=== PATIENT | female | born 1940 | race Caucasian/White ===

== ENCOUNTER 2016-10-28 22:19 | Emergency (ER) | payer MEDICARE, OTHER ==
[~2016-10-28] VITALS: Ht 162.6 cm; Wt 88.0 kg
[~2016-10-28 22:19] MED LIST: ALBU0.63 NEB; ALBU8.5H5 INH; ASPI-496 PO; CEFU500T PO; FLUT12AE INH; HYDR-3240 PO; LEVO500T33 PO; LEVO75TA PO; LORA10TA75 PO; MOME17SP NAS; MONT10TA6 PO; PRED20TA PO; PROP225C3 PO; VERA180C2 PO; VERA180T56 PO; [UNRECOGNIZED DRUG - REMARK]
[2016-10-28 23:01] LABS: ASPARTATE AMINO TRANSFERASE 13 U/L (15-37); BLOOD UREA NITROGEN 15 mg/dL (7-18)
[2016-10-28 23:12] LABS: IS PT STATUS REG ER OR PRE ER? YES
[2016-10-29 00:02] VITALS: BP 149/54
== END 2016-10-29 00:03 | disposition home or self-care (01) ==
LOC: ED 23:11
DX: J44.9 Chronic obstructive pulmonary disease, unspecified (principal); I10 Essential (primary) hypertension; K21.9 Gastro-esophageal reflux disease without esophagitis; E78.00 Pure hypercholesterolemia, unspecified; Z85.038 Personal history of other malignant neoplasm of large intestine; Z88.1 Allergy status to other antibiotic agents; Z88.8 Allergy status to other drugs, medicaments and biological substances
CPT/HCPCS: 36415; 71010; 80053; 83735; 83880; 84484; 85025; 93005; 99285

== ENCOUNTER 2016-11-04 11:51 | Emergency (ER) | payer MEDICARE, OTHER ==
[~2016-11-04] VITALS: Ht 162.6 cm; Wt 87.7 kg
[2016-11-04] MEDS ORDERED: SODIUM CHLORIDE FLUSH 10ML SYR IVF ONE (12:30)
[2016-11-04 12:37] LABS: HEMATOCRIT 41.8 % (34.6-47.8); HEMOGLOBIN 13.6 g/dL (11.7-16.4); WHITE BLOOD COUNT 10.8 x10^3/uL (3.4-10)
[2016-11-04 12:49] LABS: BLOOD UREA NITROGEN 13 mg/dL (7-18)
[2016-11-04 12:57] LABS: IS PT STATUS REG ER OR PRE ER? YES
[2016-11-04 14:05] VITALS: BP 138/76
== END 2016-11-04 14:25 | disposition home or self-care (01) ==
LOC: ED 12:23
DX: I10 Essential (primary) hypertension (principal); J32.0 Chronic maxillary sinusitis; E78.00 Pure hypercholesterolemia, unspecified; I48.91 Unspecified atrial fibrillation; J44.9 Chronic obstructive pulmonary disease, unspecified; Z85.038 Personal history of other malignant neoplasm of large intestine
CPT/HCPCS: 36415; 71010; 80048; 82040; 83880; 84484; 85025; 93005; 99285

== ENCOUNTER 2017-02-13 09:04 | Inpatient (IN) | payer MEDICARE, OTHER ==
[~2017-02-13] VITALS: Ht 162.6 cm; Wt 91.3 kg
[~2017-02-13 09:04] MED LIST changes: -LEVO500T33 PO; +LEVO500T47 PO
[2017-02-13] MEDS ORDERED: LORazepam 2 MG/ML, 1ML IVPush STA (09:33)
[2017-02-13] MEDS ORDERED: DILTIAZEM 5 MG/ML, 5ML IV ONE (10:00)
[2017-02-13] MEDS ORDERED: SODIUM CHLORIDE FLUSH 10ML SYR IVF ONE (10:00)
[2017-02-13] MEDS ORDERED: SODIUM CHLORIDE 0.9% 1,000ML IVBOLUS ONE (10:00)
[2017-02-13] MEDS ORDERED: ASPIRIN 81 MG TABLET CHEW ONE (10:00)
[2017-02-13] MEDS ORDERED: ASPIRIN 81 MG TABLET CHEW PO ONE (10:00)
[2017-02-13] MEDS ORDERED: LORazepam 2 MG/ML, 1ML ONE (10:01)
[2017-02-13] MEDS ORDERED: DILTIAZEM 5 MG/ML, 5ML ONE (10:02)
[2017-02-13 10:04] LABS: HEMATOCRIT 41.9 % (34.6-47.8); HEMOGLOBIN 13.7 g/dL (11.7-16.4); WHITE BLOOD COUNT 15.5 x10^3/uL (3.4-10)
[2017-02-13 10:18] LABS: BLOOD UREA NITROGEN 16 mg/dL (7-18)
[2017-02-13 10:22] LABS: IS PT STATUS REG ER OR PRE ER? YES
[2017-02-13] MEDS ORDERED: ENOXAPARIN 100 MG/ML SQ ONE (11:00)
[2017-02-13] MEDS ORDERED: ENALAPRILAT 1.25 MG/ML, 2ML IVPush PRN (12:30)
[2017-02-13] MEDS ORDERED: ONDANSETRON ODT 4 MG PO PRN (12:30)
[2017-02-13] MEDS ORDERED: LABETALOL 5MG/ML, 20ML IVPush PRN (12:30)
[2017-02-13] MEDS ORDERED: ALBUTEROL/IPRATROPIUM 2.5MG/0.5MG, 3 ML NPPB PRN (12:30)
[2017-02-13 14:40] VITALS: BP 106/67
[2017-02-13 15:32] LABS: IS PT STATUS REG ER OR PRE ER? NO
[2017-02-13 18:00] VITALS: BP 120/72
[2017-02-13] MEDS: VERAPAMIL ER 180MG TABLET.ER PO SCH (18:16)
[2017-02-13] MEDS: ALBUTEROL/IPRATROPIUM 2.5MG/0.5MG, 3 ML NPPB SCH (18:59)
[2017-02-13 19:46] VITALS: BP 130/64
[2017-02-13] MEDS ORDERED: LEVOTHYROXINE 50 MCG TABLET ONE ×2 (20:14→20:15)
[2017-02-13] MEDS: SODIUM CHLORIDE 0.9% 1,000 ML IV SCH (20:19)
[2017-02-13 21:14] LABS: IS PT STATUS REG ER OR PRE ER? NO
[2017-02-13] MEDS: PROPAFENONE 150 MG TABLET PO SCH (21:48)
[2017-02-14 03:42] VITALS: BP 137/63
[2017-02-14] MEDS: LEVOTHYROXINE 50 MCG TABLET PO SCH ×2 (04:35→08:16)
[2017-02-14] MEDS: SODIUM CHLORIDE 0.9% 1,000 ML IV SCH (04:36)
[2017-02-14 05:19] LABS: HEMATOCRIT 35.5 % (34.6-47.8); HEMOGLOBIN 11.9 g/dL (11.7-16.4); WHITE BLOOD COUNT 14.9 x10^3/uL (3.4-10)
[2017-02-14 05:36] LABS: BLOOD UREA NITROGEN 15 mg/dL (7-18)
[2017-02-14] MEDS: ALBUTEROL/IPRATROPIUM 2.5MG/0.5MG, 3 ML NPPB SCH ×2 (06:40→10:51)
[2017-02-14 07:55] VITALS: BP 131/96
[2017-02-14] MEDS: PROPAFENONE 150 MG TABLET PO SCH (08:12)
[2017-02-14] MEDS: VERAPAMIL ER 180MG TABLET.ER PO SCH (08:12)
[2017-02-14] MEDS ORDERED: ASPIRIN 81 MG TABLET EC PO SCH (09:00)
[2017-02-14] MEDS ORDERED: ENOXAPARIN 40 MG/0.4 ML SQ SCH (09:00)
[2017-02-14] MEDS ORDERED: FLUTICASONE FUROATE 100MCG/INH INH SCH (09:00)
== END 2017-02-14 12:16 | disposition home or self-care (01) | DRG 309 ==
LOC: ED 09:59 → EDIP 10:50 → 5SO 14:05 → DCLOUNGE 02-14 12:03
PROVIDERS: ADMIT Family Medicine; ATTEND Family Medicine
DX: I48.0 Paroxysmal atrial fibrillation (principal); J44.1 Chronic obstructive pulmonary disease with (acute) exacerbation; I35.0 Nonrheumatic aortic (valve) stenosis; E03.9 Hypothyroidism, unspecified; I25.10 Atherosclerotic heart disease of native coronary artery without angina pectoris; F41.9 Anxiety disorder, unspecified; Z88.8 Allergy status to other drugs, medicaments and biological substances; I10 Essential (primary) hypertension; Z79.82 Long term (current) use of aspirin; Z85.038 Personal history of other malignant neoplasm of large intestine; Z86.010 Personal history of colon polyps; Z96.649 Presence of unspecified artificial hip joint
CPT/HCPCS: 36415; 71010; 80048; 82040; 84443; 84484; 85025; 85610; 85730; 93005; 94640; 96361; 96374; J1650; J7620; J2060; J7030

== ENCOUNTER 2017-02-16 15:36 | Emergency (ER) | payer MEDICARE, OTHER ==
[~2017-02-16] VITALS: Ht 162.6 cm; Wt 87.4 kg
[2017-02-16 16:57] LABS: PATH.CAST-FLAG NOT PRESENT; SPERM-FLAG NOT PRESENT; SRC-FLAG NOT PRESENT; XTAL-FLAG NOT PRESENT; YLC-FLAG NOT PRESENT
[2017-02-16] MEDS ORDERED: SODIUM CHLORIDE FLUSH 10ML SYR IVF ONE (17:00)
[2017-02-16] MEDS ORDERED: SODIUM CHLORIDE 0.9% 1,000ML IVBOLUS ONE (17:00)
[2017-02-16] MEDS ORDERED: LORazepam 1MG TABLET PO ONE (17:00)
[2017-02-16] MEDS ORDERED: LORazepam 1MG TABLET ONE (17:05)
[2017-02-16 17:27] LABS: HEMATOCRIT 43.1 % (34.6-47.8); HEMOGLOBIN 14.4 g/dL (11.7-16.4); WHITE BLOOD COUNT 19.3 x10^3/uL (3.4-10)
[2017-02-16 17:31] LABS: BLOOD UREA NITROGEN 17 mg/dL (7-18)
[2017-02-16 17:34] LABS: ASPARTATE AMINO TRANSFERASE 14 U/L (15-37)
[2017-02-16 18:46] VITALS: BP 140/68
== END 2017-02-16 19:24 | disposition home or self-care (01) ==
LOC: ED 16:56
DX: S39.012A Strain of muscle, fascia and tendon of lower back, initial encounter (principal); J01.90 Acute sinusitis, unspecified; D72.829 Elevated white blood cell count, unspecified; J44.9 Chronic obstructive pulmonary disease, unspecified; K21.9 Gastro-esophageal reflux disease without esophagitis; E78.00 Pure hypercholesterolemia, unspecified; I10 Essential (primary) hypertension; Z85.038 Personal history of other malignant neoplasm of large intestine; X58.XXXA Exposure to other specified factors, initial encounter; Y93.89 Activity, other specified; Y92.89 Other specified places as the place of occurrence of the external cause; Y99.9 Unspecified external cause status
CPT/HCPCS: 36415; 71010; 74176; 80053; 81001; 85025; 87077; 87086; 93005; 96360; 96361; 99285; J7030

== ENCOUNTER 2017-07-18 11:27 | Emergency (ER) | payer MEDICARE, OTHER ==
[~2017-07-18] VITALS: Ht 162.6 cm; Wt 86.0 kg
[2017-07-18] MEDS ORDERED: SODIUM CHLORIDE FLUSH 10ML SYR IVF ONE (12:00)
[2017-07-18] MEDS ORDERED: ALBUTEROL/IPRATROPIUM 2.5MG/0.5MG, 3 ML NPPB SCH (12:00)
[2017-07-18 12:03] LABS: BASOPHILS % (AUTO) 0 % (0-1); EOSINOPHILS % (AUTO) 0 % (1-7); LYMPHOCYTES # (AUTO) 1.44 x10^3/uL (1-3.4); LYMPHOCYTES % (AUTO) 15 % (22-44); MD NO; MEAN CORPUSCULAR HEMOGLOBIN 29.2 pg (27.0-34.8); MEAN CORPUSCULAR HGB CONC 33.2 g/dL (32.4-35.8); MEAN PLATELET VOLUME 7.4 fL (7.4-10.4); MONOCYTES # (AUTO) 0.67 x10^3/uL (0.2-0.8); MONOCYTES % (AUTO) 7 % (2-9); NEUTROPHILS # (AUTO) 7.67 x10^3/uL (1.8-6.8); NEUTROPHILS % (AUTO) 78 % (42-75); PLATELET COUNT 355 x10^3/uL (130-400); RED BLOOD COUNT 4.49 x10^6/uL (3.82-5.3); RED CELL DISTRIBUTION WIDTH 15.4 % (9.6-15.2)
[2017-07-18 12:12] LABS: ALBUMIN 3.5 g/dL (3.4-5.0); ANION GAP 8 mmol/L (5-15); CALCIUM 8.7 mg/dL (8.5-10.1); CHLORIDE 96 mmol/L (98-107); CREATININE 0.83 mg/dL (0.55-1.02)
[2017-07-18 12:15] LABS: TROPONIN I < 0.015 ng/mL (0.000-0.045)
[2017-07-18] MEDS ORDERED: ALBUTEROL/IPRATROPIUM 2.5MG/0.5MG, 3 ML ONE (12:18)
[2017-07-18] MEDS ORDERED: VERA100C2 PO (12:32)
[2017-07-18] MEDS ORDERED: PRED20TA PO (12:32)
[2017-07-18] MEDS ORDERED: TIOT18CA INH (12:32)
[2017-07-18] MEDS ORDERED: DOXYCYCLINE 100MG TABLET ONE (13:21)
[2017-07-18] MEDS ORDERED: DOXYCYCLINE 100MG CAP PO ONE (13:30)
[2017-07-18 14:51] VITALS: BP 165/80
== END 2017-07-18 14:54 | disposition home or self-care (01) ==
LOC: ED 14:47
DX: J44.0 Chronic obstructive pulmonary disease with (acute) lower respiratory infection (principal); J20.8 Acute bronchitis due to other specified organisms; E87.1 Hypo-osmolality and hyponatremia; B96.89 Other specified bacterial agents as the cause of diseases classified elsewhere; K21.9 Gastro-esophageal reflux disease without esophagitis; E78.00 Pure hypercholesterolemia, unspecified; Z85.038 Personal history of other malignant neoplasm of large intestine; Z88.8 Allergy status to other drugs, medicaments and biological substances
CPT/HCPCS: 36415; 71045; 80048; 82040; 83605; 83880; 84484; 85025; 93005; 94640; 99285; J7512; J7620